=== PATIENT | female | born 1990 | race African-American/Black ===

== ENCOUNTER 2021-02-27 18:26 | Emergency (ER) | payer MEDICAID ==
--- NOTE | 2021-02-27 19:29 | NUR ---
PLEASE CALL PT [phone] BECAUSE SHE IS IN HER CAR
--- NOTE | 2021-02-27 20:15 | NUR ---
PT CALLED NO ANSWER
--- NOTE | 2021-02-27 20:35 | NUR ---
PT CALLED TO TRIAGE NO ANSWER
== END 2021-02-27 20:45 | disposition left against medical advice (07) ==
LOC: ER 18:36
DX: Z53.21 Procedure and treatment not carried out due to patient leaving prior to being seen by health care provider (principal)